=== PATIENT | female | born 1990 | race Caucasian/White ===

== ENCOUNTER → 2017-01-04 12:28 | Outpatient (CLI) | payer MEDICAID ==
[2015-07-01 12:50] VITALS: BMI 30.5
[~2017-01-04 12:28] MED LIST: CELEXA10 MG PO; DIABETA2.5 MG PO; HYDROCODONE-APA1 TAB PO; IBUPROFEN600 MG PO; PRENATAL COMPLE1 TAB PO
== END | disposition home or self-care (01) ==
LOC: D.US 12:28
DX: O44.20 Partial placenta previa NOS or without hemorrhage, unspecified trimester (principal)

== ENCOUNTER → 2017-02-22 15:35 | Outpatient (CLI) | payer MEDICAID ==
[2015-07-01 12:50] VITALS: BMI 30.5
== END | disposition home or self-care (01) ==
LOC: D.LDO 15:35
DX: Z34.90 Encounter for supervision of normal pregnancy, unspecified, unspecified trimester (principal)

== ENCOUNTER → 2017-03-16 11:36 | Outpatient (CLI) | payer MEDICAID ==
[2015-07-01 12:50] VITALS: BMI 30.5
== END | disposition home or self-care (01) ==
LOC: D.LDO 11:36
DX: O26.893 Other specified pregnancy related conditions, third trimester (principal); Z3A.33 33 weeks gestation of pregnancy

== ENCOUNTER → 2017-03-19 08:26 | Outpatient (CLI) | payer MEDICAID ==
[2015-07-01 12:50] VITALS: BMI 30.5
== END | disposition home or self-care (01) ==
LOC: D.LDO 08:26
DX: O24.419 Gestational diabetes mellitus in pregnancy, unspecified control (principal); Z3A.33 33 weeks gestation of pregnancy

== ENCOUNTER → 2017-03-23 11:30 | Outpatient (CLI) | payer MEDICAID ==
[2015-07-01 12:50] VITALS: BMI 30.5
== END | disposition home or self-care (01) ==
LOC: D.LDO 11:30
DX: O24.913 Unspecified diabetes mellitus in pregnancy, third trimester (principal); Z3A.34 34 weeks gestation of pregnancy

== ENCOUNTER → 2017-03-26 09:37 | Outpatient (CLI) | payer MEDICAID ==
[2015-07-01 12:50] VITALS: BMI 30.5
== END | disposition home or self-care (01) ==
LOC: D.LDO 09:37
DX: O24.913 Unspecified diabetes mellitus in pregnancy, third trimester (principal); Z3A.34 34 weeks gestation of pregnancy

== ENCOUNTER → 2017-03-31 08:49 | Outpatient (CLI) | payer MEDICAID ==
[2015-07-01 12:50] VITALS: BMI 30.5
== END | disposition home or self-care (01) ==
LOC: D.LDO 08:49
DX: O24.913 Unspecified diabetes mellitus in pregnancy, third trimester (principal); Z3A.35 35 weeks gestation of pregnancy

== ENCOUNTER → 2017-04-03 09:08 | Outpatient (CLI) | payer MEDICAID ==
[2015-07-01 12:50] VITALS: BMI 30.5
== END | disposition home or self-care (01) ==
LOC: D.LDO 09:08
DX: O24.419 Gestational diabetes mellitus in pregnancy, unspecified control (principal); Z3A.35 35 weeks gestation of pregnancy

== ENCOUNTER → 2017-04-06 13:20 | Outpatient (CLI) | payer MEDICAID ==
[2015-07-01 12:50] VITALS: BMI 30.5
== END | disposition home or self-care (01) ==
LOC: D.LDO 13:20
DX: O24.419 Gestational diabetes mellitus in pregnancy, unspecified control (principal); Z3A.36 36 weeks gestation of pregnancy

== ENCOUNTER → 2017-04-09 16:55 | Outpatient (CLI) | payer MEDICAID ==
[2015-07-01 12:50] VITALS: BMI 30.5
== END | disposition home or self-care (01) ==
LOC: D.LDO 16:55
DX: O24.419 Gestational diabetes mellitus in pregnancy, unspecified control (principal); Z3A.36 36 weeks gestation of pregnancy

== ENCOUNTER → 2017-04-13 10:00 | Outpatient (CLI) | payer MEDICAID ==
[~2017-04-13 10:00] MED LIST changes: +AMBIEN10 MG PO; +GLYBURIDE2.5 MG PO; +PROTONIX40 MG PO
== END | disposition home or self-care (01) ==
LOC: D.LDO 10:00
DX: O24.419 Gestational diabetes mellitus in pregnancy, unspecified control (principal); Z3A.00 Weeks of gestation of pregnancy not specified

== ENCOUNTER 2017-04-18 22:00 | Outpatient (CLI) | payer MEDICAID ==
[2015-07-01 12:50] VITALS: BMI 30.5
[~2017-04-18 22:00] MED LIST changes: -AMBIEN10 MG PO; -GLYBURIDE2.5 MG PO; -PROTONIX40 MG PO
== END 2017-04-18 23:07 ==
LOC: D.LDO 22:00
DX: O26.893 Other specified pregnancy related conditions, third trimester (principal); Z3A.37 37 weeks gestation of pregnancy

== ENCOUNTER → 2017-04-20 13:58 | Outpatient (CLI) | payer MEDICAID ==
[2015-07-01 12:50] VITALS: BMI 30.5
[~2017-04-20 13:58] MED LIST changes: +AMBIEN10 MG PO; +GLYBURIDE2.5 MG PO; +PROTONIX40 MG PO
== END | disposition home or self-care (01) ==
LOC: D.LDO 13:58
DX: O24.913 Unspecified diabetes mellitus in pregnancy, third trimester (principal); Z3A.38 38 weeks gestation of pregnancy

== ENCOUNTER → 2017-04-23 18:37 | Outpatient (CLI) | payer MEDICAID ==
[2015-07-01 12:50] VITALS: BMI 30.5
== END | disposition home or self-care (01) ==
LOC: D.LDO 18:37
DX: O24.419 Gestational diabetes mellitus in pregnancy, unspecified control (principal); Z3A.38 38 weeks gestation of pregnancy

== ENCOUNTER → 2017-04-27 14:38 | Outpatient (CLI) | payer MEDICAID ==
[2015-07-01 12:50] VITALS: BMI 30.5
== END | disposition home or self-care (01) ==
LOC: D.LDO 14:38
DX: O24.419 Gestational diabetes mellitus in pregnancy, unspecified control (principal); Z3A.39 39 weeks gestation of pregnancy

== ENCOUNTER 2017-04-29 05:01 | Inpatient (IN) | payer MEDICAID ==
[2017-04-29] VITALS (13 sets, daily range): BP systolic 97–127; BP diastolic 54–76; BMI 30.8
[~2017-04-29 05:01] MED LIST changes: -AMBIEN10 MG PO; -GLYBURIDE2.5 MG PO; -PROTONIX40 MG PO
[2017-04-29] MEDS ORDERED: AMBIEN10 MG PO (05:30)
[2017-04-29] MEDS ORDERED: PROTONIX40 MG PO (05:32)
[2017-04-29] MEDS ORDERED: GLYBURIDE2.5 MG PO (05:32)
[2017-04-29 05:33] LABS: HEMATOCRIT 35.6 % (36.0-48.0); HEMOGLOBIN 12.1 g/dL (12-16); MCH 31.8 pg (26.0-34.0); MCV 93.7 fL (80.0-100.0); MEAN PLATELET VOLUME 10.3 fL (7.4-10.4); RBC 3.8 10x6/uL (4.00-5.40); RDW 13.1 % (11.5-14.5); WBC 13.7 10x3/uL (4.8-10.8)
[2017-04-29 06:21] LABS: APPEARANCE CLEAR (CLEAR); BILIRUBIN NEGATIVE (NEGATIVE); COLOR YELLOW (YELLOW); GLUCOSE NEGATIVE (NEGATIVE); KETONE NEGATIVE (NEGATIVE); NITRITE NEGATIVE (NEGATIVE); PROTEIN NEGATIVE (NEGATIVE); SPECIFIC GRAVITY 1.015 (1.005-1.020); UROBILINOGEN NORMAL (NORMAL)
[2017-04-29 06:23] LABS: EPITHELIAL CELLS 0-5 /hpf (0-5); RED CELLS - URINE OCC /hpf (0-5); WHITE CELLS - URINE RARE /hpf (0-5)
[2017-04-29 06:24] LABS: BACTERIA NONE SEEN /hpf (NONE SEEN)
--- NOTE | 2017-04-29 08:56 | NUR ---
FUNDUS FIRM AT UMBILICUSL WITH MINIMAL LOCIA
--- NOTE | 2017-04-29 09:24 | NUR ---
PT WAS RECEIVED FROM RECOVERY POST C- SECTION. SHE IS AWAKE AND ALERT. LUNGS- CLEAR. HEART- RRR. ABD- SOFT WITH TENDERNESS, FUNDUS AT U2. SMALL LOCHIA RUBRA. LOW TRANSVERSE INCISION WITH PRIMAPORE DRESSING NOTED. DRESSING IS CLEAN , DRY AND INTACT.. EXT- WITH SCD'S. INITIATED SCD'S. IV NOTED R HAND PATENT. SANTIAGO PATENT WITH VIOLETA COLORED URINE. BED IS LOW, SIDE RAILS UP X 2 AND CALL LIGHT IN REACH.
--- NOTE | 2017-04-29 09:59 | NUR ---
DIETARY AIDE INITIATED AND PT INSTRUCTIONS GIVEN. FAMILY NOW AT BEDSIDE. ICE PACK PLACED OVER INCISION. PT TOLERATED CLEAR LIQUID DIET.
--- NOTE | 2017-04-29 10:40 | NUR ---
PT IS RESTING IN BED. PAIN IS UNDER CONTROL. FOB AT BEDSIDE. PAIN IS UNDER CONTROL WITH LANDSCAPE CREW MEMBER.
--- NOTE | 2017-04-29 11:30 | NUR ---
PT RECEIVED CLEAR LIQUID DIET AND SHE TOLERATED VERY WELL. SHE DRANK EVERYTHING OFF OF TRAY.
--- NOTE | 2017-04-29 13:59 | NUR ---
returned to bed after shower. states no problems. talked with pt. pt missing her children. showing their pictures to this nurse.
--- NOTE | 2017-04-29 14:30 | NUR ---
PT IS TRYING TO SLEEP. BED IS LOW, SIDE RAILS UP X 2 AND CALL LIGHT IN REACH.
[2017-04-29 15:47] LABS: BASOPHILS 0.1 % (0-2); EOSINOPHILS 0.5 % (0-7); HEMATOCRIT 30.7 % (36.0-48.0); HEMOGLOBIN 10.3 g/dL (12-16); IMMATURE GRANULOCYTES 0.4 % (0-5); LYMPHOCYTES 13.4 % (15-50); MCH 31.3 pg (26.0-34.0); MCHC 33.6 g/dL (31.0-37.0); MCV 93.3 fL (80.0-100.0); MEAN PLATELET VOLUME 10.9 fL (7.4-10.4); MONOCYTES 4.9 % (2-11); NEUTROPHILS 80.7 % (40-80); PLATELET COUNT 278 10x3/uL (130-400); RBC 3.29 10x6/uL (4.00-5.40); RDW 12.9 % (11.5-14.5)
[2017-04-29 15:52] LABS: WBC 17.7 10x3/uL (4.8-10.8)
--- NOTE | 2017-04-29 16:15 | NUR ---
WENT IN ROOM TO CHECK ON PT. SHE IS CRYING HARD. SHE STATES THAT SHE FEELS TRAPPED. SHE WANTS TO STAND UP. STATES THAT SHE CANT SLEEP. CALLED DR ARAUZ AND HE SAID THAT SHE COULD GET UP AND SIT UP IF SHE WANTS. PT GOT UP AND STOOD AT BEDSIDE, MODERATE LOCIA ON PADS. PADS CHANGED. PT BACK TO BED.
--- NOTE | 2017-04-29 19:30 | NUR ---
PM ROUNDS MADE, PT RESTING WITH EYES CLOSED, RESP QUIET, NO DISTRESS NOTED, LEFT UNDISTURBED AT THIS TIME
--- NOTE | 2017-04-29 20:00 | NUR ---
PT AWAKE, ASSESSMENT PER FLOW SHEET, VS OBTAINED, IV IN RIGHT HAND INTACT WITH NO REDNESS OR EDEMA INFUSING VIA PUMP NS WITH PITOCIN AT 125 ML/HR, DILAUDID FMD TEACHER TO DELIVER 0.2MG/10MINS PER PT'S DEMAND, PT RATES INC PAIN 08/28, PT DOES PUSH FMD TEACHER BUTTON AT THIS TIME, FF, ML, U/1, LITE BLEEDING NOTED WITH NO CLOTS, BIKINI INC WITH SMALL DRESSING CDI WITH NO DRAINAGE NOTED, REFUSES ICE PACK, PT REQUESTS TO STAND AT BEDSIDE FOR A FEW MINUTES, PT UP TO SIDE OF BED WITH ASSISTANCE, DENIES ANY DIZZYNESS, LIGHTHEADEDNESS AT THIS TIME, BLUE CHUX CHANGED, PT BACK TO BED, SANTIAGO CATH INTACT DRAINING DARK YELLOW URINE, PT DENIES FLATUS, SCD'S PLACED BACK ON AND WORKING PROPERLY, PT DENIES ANY NAUSEA OR VOMITING, STATES "I FEEL A LOT BETTER", REQUESTED AND SERVED COLA, PT REQUESTED TO ROOM, NSY NOTIFIED, DENIES FURTHER NEEDS, FOB AT BEDSIDE, TRASH REMOVED
--- NOTE | 2017-04-29 21:15 | NUR ---
PT RESTING, AROUSES TO OPENING OF DOOR, DENIES NEEDS AT THIS TIME, FOB AT BEDSIDE
--- NOTE | 2017-04-29 22:17 | NUR ---
PT RESTING WITH EYES CLOSED, RESP QUIET, NO DISTRESS NOTED, LEFT UNDISTURBED AT THIS TIME, FOB ASLEEP IN RECLINER
--- NOTE | 2017-04-29 23:00 | NUR ---
PT FISHER SEAL LIGHT, IV BEEPING, PT'S IV IS POSITIONAL, PT REPOSITONED HAND, VS OBTAINED, LITE BLEEDING NOTED, ROSALBA PAD CHANGED, EMPTIED SANTIAGO CATHETER, PT RATES INC PAIN 2/10, REQUESTED AND SERVED ICE CHIPS, ASSISTED FOB WITH CHAIR BED, PT DENIES FURTHER NEEDS
--- NOTE | 2017-04-30 00:11 | NUR ---
PT SHOT GRINDER OPERATOR LIGHT, IV BEEPING, NEW VIAL OF DILAUDID TO JOURNEYMAN PIPEFITTER MACHINE AND NEW BAG OF NS WITH PITOCIN HUNG, PER MD ORDERS, SEE EMAR, PT DENIES NEEDS AT THIS TIME, FOB AT BEDSIDE
--- NOTE | 2017-04-30 01:12 | NUR ---
PT RESTING WITH EYES CLOSED, RESP QUIET, NO DISTRESS NOTED, LEFT UNDISTURBED AT THIS TIME, FOB ASLEEP IN CHAIRBED
--- NOTE | 2017-04-30 01:44 | NUR ---
PT RAILROAD CAR CLEANER LIGHT, PT REQUESTING SOMETHING TO HELP HER SLEEP, EXPLAINED TO PT THAT WE DON'T ADM SLEEPING AIDS WHILE ON A DILAUDID WILDLIFE AND GAME PROTECTOR, PT VERBALIZES UNDERSTANDING, PT REQUESTED AND SERVED SNACK, DENIES FURTHER NEEDS, FOB ASLEEP IN RECLINER
--- NOTE | 2017-04-30 02:33 | NUR ---
PT HUNTER GUIDE LIGHT, PT REQUESTED AND SERVED A SNACK, DENIES FURTHER NEEDS
[2017-04-30 03:40] VITALS: BP 108/65
--- NOTE | 2017-04-30 03:40 | NUR ---
PT AWAKE, VS OBTAINED, I&O'S COLLECTED, LITE BLEEDING WITH NO CLOTS NOTED, ROSALBA PAD CHANGED, RATES INC PAIN 2/10, REQUESTED AND SERVED CUP OF ICE, DENIES FURTHER NEEDS, FOB AT BEDSIDE
--- NOTE | 2017-04-30 05:00 | NUR ---
PT INTERNAL SECURITY MANAGER LIGHT, PT REQUESTING ROSALBA PAD TO BE CHANGED, SCANT BLEEDING NOTED WITH NO CLOTS, PT REQUESTS BABY TO ROOM, BABY TO ROOM VIA OPEN CRIB CART PER THIS RN, BANDS CHECKED, PT DENIES FURTHER NEEDS, FOB ASLEEP IN CHAIRBED
--- NOTE | 2017-04-30 05:31 | NUR ---
PT PLATE FINISHER LIGHT, PT REPORTS GETTING SLEEPY, BABY TO NSY VIA OPEN CRIB CART PER THIS RN, PT DENIES FURTHER NEEDS
[2017-04-30 05:51] LABS: BASOPHILS 0.1 % (0-2); EOSINOPHILS 1.6 % (0-7); HEMATOCRIT 33.1 % (36.0-48.0); HEMOGLOBIN 11.2 g/dL (12-16); IMMATURE GRANULOCYTES 0.4 % (0-5); LYMPHOCYTES 21.5 % (15-50); MCHC 33.8 g/dL (31.0-37.0); MCV 94.6 fL (80.0-100.0); MEAN PLATELET VOLUME 10.2 fL (7.4-10.4); MONOCYTES 4.9 % (2-11); NEUTROPHILS 71.5 % (40-80); PLATELET COUNT 292 10x3/uL (130-400); WBC 14.6 10x3/uL (4.8-10.8)
--- NOTE | 2017-04-30 06:37 | NUR ---
SHIFT REPORT TO MARY SHEA RN
[2017-04-30 07:13] VITALS: BP 112/68
--- NOTE | 2017-04-30 07:13 | NUR ---
RCVD PT FROM Taryn GHOSH RN. PT SITTING UP IN BED WITH HOB 60 DEGREES. PT AAOX3. C/O PAIN IN ABD @ INCISION 12/26 WITH LITTLE RELIEF FROM FORESTRY AID TECHNICIAN. WILL PLAN TO GIVE TORADOL UPON RETURN. BREATH SOUNDS CLEAR & UNLABORED X2, BOWEL SOUNDS ACTIVE X4. LARGE DRESSING OVER BLI WITH SMALL SEROSANGUINOUS DRAINAGE NOTED, DRESSING IS DRY. FUNDUS FIRM, U/2. SMALL LOCHIA RUBRA NOTED TO PERIPAD WITH NO CLOTS NOTED. PAD CHANGED AT THIS TIME. SANTIAGO CATH DRAINING TO GRAVITY WITH 450ML OF CLEAR YELLOW URINE EMPTIED FROM UROMETER. PIV TO R HAND PATENT WITH NO SIGNS OF ERYTHEMA OR EDEMA NOTED. PT HAS REG. DIET ORDERED. SANDWICH TRAY AND COLA PROVIDED PER PT REQUEST. PT DENIES FURTHER NEEDS AT THIS TIME. WILL CONT TO MONITOR. BED LOW, WHEELS LOCKED, CL IN REACH, SIDE RAILS UP X2.
--- NOTE | 2017-04-30 07:17 | NUR ---
TORADOL GIVE PER ORDERS. SEE EMAR. PT DENIES FURTHER NEEDS AT THIS TIME.
--- NOTE | 2017-04-30 07:45 | NUR ---
PAIN REASSESSMENT COMPLETED AT THIS TIME. PT RATES PAIN 3/10 CURRENTLY AND TOLERABLE. PT SITTING UP IN BED WITH INFANT UP IN ARMS AND CONSUMED 100% OF MEAL TRAY. PT DENIES FURTHER NEEDS. WILL CONT TO MONITOR.
[2017-04-30 08:21] LABS: RAPID PLASMA REAGIN Non Reactive (Non Reactive)
--- NOTE | 2017-04-30 09:00 | NUR ---
SANTIAGO CATH D/C'D WITH CATH TIP INTACT, 175ML CLEAR YELLOW URINE NOTED IN UROMETER. PT TOLERATED WELL. HAUL DRIVER PUMP TURNED OFF AT THIS TIME. PIV SL. ADV PT TO CALL WHEN FEELS URGE TO VOID. PT VERBALIZED UNDERSTANDING AND DENIES FURTHER NEEDS.
--- NOTE | 2017-04-30 09:30 | NUR ---
PT RINGS CL. RN TO BEDSIDE. PT REPORTS URGE TO VOID. PT ASSISTED TO SITTING ON SIDE OF BED WITH NO C/O DIZZINESS OR LIGHTHEADEDNESS. PT ASSISTED TO STANDING AT BEDSIDE WITH NO C/O DIZZINESS. PT AMB PER SELF TO BATHROOM. VOIDS LARGE AMOUNT ON COMMODE. PANTIES AND PADS PROVIDED. PT AMB PER SELF BACK TO BED AND DENIES FURTHER NEEDS AT THIS TIME. WILL CONT TO MONITOR.
[2017-04-30 11:13] VITALS: BMI 30.8
[2017-04-30 11:35] VITALS: BP 111/70
--- NOTE | 2017-04-30 11:35 | NUR ---
VSS. PT SITTING UP IN BED WITH MEAL TRAY DELIVERED. PT RATES PAIN 5/10 AND REQUESTS MOTRIN AND NORCO. ADV WILL RETURN WITH SAME. PT DENIES FURTHER NEEDS.
--- NOTE | 2017-04-30 11:47 | NUR ---
NORCO 10/325 X1 TAB AND MOTRIN 600MG X1 TAB GIVEN FOR PAIN RATED 5/10 AND PER PT REQUEST AT THIS TIME. PT DENIES FURTHER NEEDS. FAMILY IN ROOM VISITING WITH SLEEPING IN OPEN CRIB AT BEDSIDE. PT REPORTS NEEDS TO VOID 1 MORE TIME BEFORE SHOWER. ADV PT TO CALL WHEN READY.
--- NOTE | 2017-04-30 12:35 | NUR ---
PAIN REASSESSMENT COMPLETE. PT RATES PAIN 3/10 AND TOLERABLE. PT DENIES FURTHER NEEDS. WILL CONT TO MONITOR.
--- NOTE | 2017-04-30 13:28 | NUR ---
ROUNDS MADE. PT VOIDS X3 AT THIS TIME AND REQUESTS TO SHOWER. LINENS AND TOWELS PROVIDED. PT DENIES FURTHER NEEDS.
--- NOTE | 2017-04-30 14:15 | NUR ---
ROUNDS MADE. PT OUT OF SHOWER. DENIES PAIN OR NEEDS AT THIS TIME. WILL CONT TO MONITOR.
--- NOTE | 2017-04-30 15:11 | NUR ---
ROUNDS MADE. PT AMB IN ROOM. PAIN 5/10, AND STATES IT'S TOLERABLE. PT DENIES FURTHER NEEDS AT THIS TIME.
--- NOTE | 2017-04-30 15:11 | NUR ---
ROUNDS MADE. PT DENIES PAIN AT THIS TIME OR NEEDS. PT CURRENTLY . WILL CONT TO MONITOR.
[2017-04-30 15:56] VITALS: BP 110/67
--- NOTE | 2017-04-30 15:56 | NUR ---
NORCO GIVEN PER ORDERS. SEE EMAR. PT RATES PAIN 5/10 CURRENTLY IN ABD. INFANT RESTING IN OPEN CRIB AT BEDSIDE. PT DENIES FURTHER NEEDS AT THIS TIME.
--- NOTE | 2017-04-30 17:06 | NUR ---
PAIN REASSESSMENT COMPLETE. PT RATES PAIN 3/10 AT THIS TIME AND DESCRIBES THIS TOLERABLE. PT WISHES TO CONSUME MEAL TRAY BEFORE TRANSFERRING TO NEW ROOM. PT DENIES FURTHER NEEDS. WILL CONT TO MONITOR.
--- NOTE | 2017-04-30 17:16 | NUR ---
PT AMB TO ROOM 1274 AT THIS TIME. STEADY GAIT NOTED. PT AND FOB ORIENTED TO ROOM. PT DENIES FURTHER NEEDS AT THIS TIME.
[2017-04-30 19:13] VITALS: BP 127/75
--- NOTE | 2017-04-30 19:13 | NUR ---
RN TO BEDSIDE. PT REC'D SITTING IN HIGH FOWLERS POSITION. INFANT IN OPEN CRIB AT BEDSIDE. PT EATING MEAL BROUGHT TO HER BY FAMILY. PAIN 8/10 AT THIS TIME, ABD CRAMPING WITH INCISIONAL BURNING AND STINGING. PT REQUEST PAIN MEDICATIONS, MOTRIN GIVEN PER REQUEST. INSTRUCTED ON NORCO TIMING AND FREQUENCY, VERBALIZED UNDERSTANDING. VSS. FUNDUS FIRM U2 WITH SMALL AMT RUBRA LOCHIA, NO CLOTS PRESENT. BOWEL SOUNDS PRESENT AND ACTIVE X4, PT STATES THAT SHE IS PASSING FLATUS AND VOIDING WITHOUT DIFFICULTY. INCISION, CLEAN AND DRY, WELL APPROXIMATED WITH MILA IN PLACE, NO S/S OF INFECTION NOTED. PT REPORTS THAT PERIPAD BETWEEN ABD FOLD AND INCISION CAUSED HER INCISION TO ITCH, PILLOWCASE PLACED INSTEAD, PT VERBALIZED RELIEF. INSTRUCTED PT AND S/O ON S/S OF INFECTION AND POSSIBLE COMPLICATIONS. PT ALSO INSTRUCTED ON PAIN MGMT AND LOCHIA AMT/DURATION/APPEARANCE FOR PP PERIOD WITH UNDERSTANDING VERBALIZED. S/O AT BEDSIDE, SUPPORTIVE AND ATTENTIVE TO PT AND INFANT. BED IN LOW POSITION WITH UPPER SIDE RAILS RAISED X2. CL AND PHONE WITHIN REACH. WILL CONT TO MONITOR AND ASSIST PRN.
--- NOTE | 2017-04-30 20:06 | NUR ---
PAIN REASSESSMENT COMPLETED. PAIN REMAINS 12/26, PT REQUESTS NORCO AT THIS TIME. STATES THAT MOTRIN HELPED CRAMPING BUT SHE IS STILL HAVING INCISIONAL BURNING AND STINGING. GIVEN PER REQUEST. INSTRUCTED PT ON SIDE EFFECTS AND FREQUENCY OF NORCO, VERBALIZED UNDERSTANDING. VISITORS AT BEDSIDE. PT CONVERSING WITH VISITORS ALSO. BED IN LOW POSITION WITH UPPER SIDE RAILS RAISED X2. CL AND PHONE WITHIN REACH. WILL CONT TO MONITOR AND ASSIST PRN.
--- NOTE | 2017-04-30 20:55 | NUR ---
PAIN REASSESSMENT COMPLETED. 10/26. ICE PROVIDED. DENIES ADDITIONAL NEEDS AT THIS TIME. BED IN LOW POSITION. LINENS PROVIDED TO S/O. BED IN LOW POSITION WITH UPPER SIDE RAILS RAISED X2. CL AND PHONE WITHIN REACH. XU CORONEL RN TO BEDSIDE WITH INFANT. WILL CONT TO MONITOR AND ASSIST PRN.
--- NOTE | 2017-04-30 22:12 | NUR ---
RN TO BEDSIDE FOR ROUNDS. PT IN SEMIFOWLERS POSITION BONDING WITH INFANT. PAIN 2/10, DENIES NEEDS AT THIS TIME. S/O RESTING ON COUCH AT BEDSIDE. BED IN LOW POSITION WITH UPPER SIDE RAILS RAISED X2. CL AND PHONE WITHIN REACH. WILL CONT TO MONITOR AND ASSIST PRN.
--- NOTE | 2017-04-30 23:29 | NUR ---
RN TO BEDSIDE FOR ROUNDS. PT RESTING QUIETLY WITH EYES CLOSED IN SEMIFOWLERS POSITION. RESPIRATIONS REGULAR AND UNLABORED, NO S/S OF DISTRESS NOTED. IN OPEN CRIB AT BEDSIDE. S/O RESTING ON COUCH AT BEDSIDE. BED IN LOW POSITION WITH UPPER SIDE RAILS RAISED X2. CL AND PHONE WITHIN REACH. WILL CONT TO MONITOR AND ASSIST PRN.
[2017-05-01 00:29] VITALS: BP 110/70
--- NOTE | 2017-05-01 00:29 | NUR ---
RN TO BEDSIDE FOR ROUNDS. ICE PROVIDED PER REQUEST. VSS. FUNDUS FIRM U2 WITH SMALL AMT RUBRA LOCHIA, NO CLOTS PRESENT. PAIN 6/10 ABD CRAMPING, INCISIONAL BURNING/STINGING. NORCO GIVEN PER REQUEST AND ORDER. S/O REMAINS AT BEDSIDE RESTING ON COUCH. PT DENIES ADDITIONAL NEEDS AT THIS TIME. BED IN LOW POSITION WITH UPPER SIDE RAILS RAISED X2. CL AND PHONE WITHIN REACH. WILL CONT TO MONITOR AND ASSIST PRN.
--- NOTE | 2017-05-01 01:23 | NUR ---
PAIN REASSESSMENT COMPLETED. PT RESTING WITH EYES CLOSED IN SEMI FOWLERS POSITION ON RIGHT SIDE, DOESN'T OPEN EYES WHEN DOOR OPENS. RESPIRATIONS REGULAR AND UNLABORED, NO S/S OF DISTRESS NOTED. S/O REMAINS AT BEDSIDE RESTING ON COUCH. BED IN LOW POSITION WITH UPPER SIDE RAILS RAISED X2. CL AND PHONE WITHIN REACH. WILL CONT TO MONITOR AND ASSIST PRN.
--- NOTE | 2017-05-01 04:04 | NUR ---
RN TO BEDSIDE FOR ROUNDS. PT ATTEMPTING TO BREAST FEED AT THIS TIME. INSTRUCTED TO CALL RN TO BEDSIDE WITH CL WHEN SHE FINISHES BREAST FEEDING, VERBALIZES UNDERSTANDING. DENIES NEED FOR ASSISTANCE WITH BREAST FEEDING. NBN NOTIFIED THAT PT WAS AT THIS TIME. WILL CONT TO MONITOR AND ASSIST PRN.
--- NOTE | 2017-05-01 04:25 | NUR ---
PT CALLS VIA CL. RN TO BEDSIDE. VSS. FUNDUS FIRM U2 WITH SMALL AMT RUBRA LOCHIA, NO CLOTS. PAIN 7/10, ABD CRAMPING AND INCISIONAL BURNING AND STINGING. NORCO AND MOTRIN GIVEN. INFANT NOTED TO BE ROOTING. PT ASKS ABOUT . INSTRUCTED ON BOTTLE FEEDING AND BREAST FEEDING. PT STATES THAT SHE IS GOING TO ATTEMPT TO BREAST FEED AGAIN AT THIS TIME. REQUESTS ASSISTANCE, Opal HILARIO RN NOTIFIED AND WILL COME TO BEDSIDE TO ASSIST WITH FEEDING. BED IN LOW POSITION WITH UPPER SIDE RAILS RAISED X2. CL AND PHONE WITHIN REACH. WILL CONT TO MONITOR.
[2017-05-01 04:27] VITALS: BP 117/72
--- NOTE | 2017-05-01 05:10 | NUR ---
PAIN REASSESSMENT COMPLETED. PT RESTING WITH EYES CLOSED IN SEMI FOWLERS POSITION ON BACK. RESPIRATIONS REGULAR AND UNLABORED. NO S/S OF DISTRESS NOTED. S/O REMAINS AT BEDSIDE RESTING ON COUCH. BED IN LOW POSITION WITH UPPER SIDE RAILS RAISED X2. CL AND PHONE WITHIN REACH. WILL CONT TO MONITOR AND ASSIST PRN.
--- NOTE | 2017-05-01 06:39 | NUR ---
RN TO BEDSIDE FOR ROUNDS. PT LAYING ON RIGHT SIDE, IN SEMI FOWLERS POSITION RESTING WITH EYES CLOSED. RESPIRATIONS REGULAR AND UNLABORED. NO S/S OF DISTRESS NOTED. BED IN LOW POSITION WITH UPPER SIDE RAILS RAISED X2. CL AND PHONE WITHIN REACH. S/O REMAINS AT BEDSIDE RESTING ON COUCH WITH EYES CLOSED. WILL CONT TO MONITOR AND ASSIST PRN.
--- NOTE | 2017-05-01 07:27 | NUR ---
THIS RN TO ROOM FOR SHIFT ASSESSMENT. PT , DENIES ANY NEEDS AT THIS TIME. PT INSTRUCTED TO CALL OUT SUPERVISOR FIBER LOCKING LIGHT WHEN FINISHED FEEDING SO SHIFT ASSESSMENT CAN BE COMPLETED. UNDERSTANDING VERBALIZED. SRUx2, CL IN REACH. FOB IN ROOM.
[2017-05-01 07:47] VITALS: BP 123/76
--- NOTE | 2017-05-01 07:47 | NUR ---
PT CALLS OUT REAL ESTATE ACQUISITION ANALYST LIGHT STATING SHE HAS FINISHED FEEDING . THIS RN TO ROOM FOR ASSESSMENT. SHIFT ASSESSMENT COMPLETED, VSS, SEE FLOWSHEET FOR DOC. PT RATES PAIN 4/10 AT INCISION AND ABD CRAMPING FOLLOWING . PT ASKS WHEN PAIN MED IS AVAILABLE AGAIN, PT INFORMED, UNDERSTANDING VERBALIZED. PT DENIES HEAVY LOCHIA DEFINED SATURATING ROSALBA PAD EVERY HOUR, ALSO DENIES PASSING LARGE CLOTS. PT STATES HER BLEEDING "ISN'T REALLY THAT BAD." LT ABD INCISION C/D WITH MILA INTACT, NO REDNESS, EDEMA, OR DRAINAGE. ANTICIPATED DISCHARGE DISCUSSED WITH PT, STATES SHE IS "REALLY READY TO GO HOME THIS MORNING." POC DISCUSSED. PT DENIES FURTHER NEEDS. SRUx2, CL IN REACH. WILL CONT TO MONITOR.
--- NOTE | 2017-05-01 08:41 | NUR ---
PT CALLS OUT NETWORK OPERATIONS TECHNICIAN LIGHT REQUESTING PAIN MEDICATION. PT RATING PAIN 5/10 AT INCISION, AND ABD CRAMPING. PT ADMIN PRN PAIN MED ORDERED, SEE EMAR FOR DOC. PT REQUESTING INFANT TO ROOM. NSY NOTIFIED PT IS READY FOR . PT DENIES FURTHER NEEDS. SRUx2, CL IN REACH. FOB IN ROOM.
--- NOTE | 2017-05-01 09:37 | NUR ---
PT AMBULATING IN HALLS, STATES "I JUST NEEDED TO GET OUT OF MY ROOM FOR A MINUTE." PT STATES PAIN IS MUCH BETTER, RATES 2/10. PT STATES SHE HAS BEEN COUGHING AND DEEP BREATHING MORE AND FEELS BETTER. PT ENCOURAGED ON AMBULATING AND COUGHING. PT DENIES NEEDS, AMBULATES BACK TO ROOM.
--- NOTE | 2017-05-01 11:00 | NUR ---
DR MALDONADO TO PT ROOM ROUNDING.
--- NOTE | 2017-05-01 11:21 | NUR ---
PT AMBULATES TO DESK AND ASKS IF IT IS TIME FOR AN IBUPROFEN FOR PAIN, RATES IT /10. THIS RN TO ROOM WITH IBUPROFEN, ADMIN ORDERED, SEE EMAR FOR DOC.
--- NOTE | 2017-05-01 11:30 | NUR ---
PT GIVEN DISCHARGE INSTRUCTIONS, WELL PRESCRIPTIONS FOR PAIN CONTROL POST D/C TO HOME. QUESTIONS ANSWERED, PT VERBALIZES UNDERSTANDING. PT SIGNS CHART COPIES. NSY STAFF TO ROOM TO DISCHARGE INFANT, PT INSTRUCTED TO CALL WHEN READY FOR W/C OUT TO PRIVATE VEHICLE. UNDERSTANDING VERBALIZED.
--- NOTE | 2017-05-01 11:56 | NUR ---
PT PRESSES CALL LIGHT FOR W/C OUT. PT TAKEN OUT VIA W/C TO PRIVATE VEHICLE, FOB TO DRIVE HOME. INSTRUCTIONS AND PRESCRIPTIONS IN HAND.
--- NOTE | 2017-06-17 16:41 | OP ---
PATIENT NAME: MATT LOPEZ MEDICAL RECORD: [id number] :90 LOCATION:[id number] ADMISSION DATE:04/29/17 SURGEON: AJITH SANTANA MD DATE OF OPERATION: 04/29/2017 PREOPERATIVE DIAGNOSES: 1. Term intrauterine at 39 weeks. 2. History of previous section. PROCEDURE: Repeat low transverse section. SURGEON: Ajith Santana MD ANESTHESIA: Via spinal. FINDINGS: 1. Viable , Apgars 9 and 9. 2. Placenta delivered manually intact, 3-vessel cord noted. 3. Grossly normal adnexa bilaterally. SPECIMENS: Placenta and cord for gases. INTRAVENOUS FLUIDS: Per anesthesia records. ESTIMATED BLOOD LOSS: 1000 cc. COMPLICATIONS: None apparent. PROCEDURE: The patient was taken to the operating room where spinal anesthesia was achieved without difficulty. The patient was then prepped and draped in normal sterile fashion in the dorsal supine position. A Salazar catheter was in place and was draining freely and the SCDs were on the lower extremities and functioning normally. Following prepping and draping, a repeat Pfannenstiel skin incision was made, extended downward to the underlying subcutaneous fat to level of the fascia, which was then carefully excised in the midline and extended bilaterally using the Rao scissors. The superior and inferior aspect of the fascial incision were then grasped with Po clamps times 2, tented upward, and sharply dissected from the underlying rectus muscle using the Rao scissors and the Bovie cautery. The rectus muscles were then bluntly in the midline and the peritoneum entered sharply at the superior aspect of the incision using the Metzenbaum scissors. Peritoneal incision was then extended using the Metzenbaum scissors. A bladder flap was created by excising the anterior leaf of the broad ligament from the lower uterine segment using the Metzenbaum scissors. A bladder blade was placed into the pelvis. A low transverse incision was made using the scalpel and extended superiorly and inferiorly using the Pelosi method. At this point, the vertex was delivered atraumatically followed by the body. was bulb suctioned upon delivery. The cord was clamped times 2, cut, and the was handed to the awaiting nursery team. Cord was then obtained for blood gases and the placenta was manually removed from the uterus. Uterus was then exteriorized, cleared of all clots and debris and vigorously massaged until a good uterine tone was noted. Uterine incision was repaired with 0 Vicryl in a running locked fashion times 2 with good hemostasis noted. Posterior cul-de-sac was then thoroughly irrigated and the uterus was replaced into the pelvis. The anterior cul-de-sac was irrigated and again good hemostasis was noted from the low transverse OPERATIVE REPORT [id number] MATT LOPEZ incision. Counts were correct times 2 for needles, sponges and instruments. The fascia was repaired with 0 loop PDS times 1 and the skin repaired with kaesy. The patient tolerated the procedure well, transferred to postanesthesia recovery stable without incident. TRANSINT:[id number] Voice Confirmation ID: [id number] DOCUMENT ID: [id number] 05/25/2017 Edited to correct date of service, dmpatricio. AJITH SANTANA MD at 1641 CC: [id number] DICTATION DATE: 05/09/17713 ACCOUNTING REPRESENTATIVE: 05/09/17 1031 DIS IN 05/01/17 [facility] [address] [place] [address]
== END 2017-05-01 11:57 | disposition home or self-care (01) | DRG 766 ==
LOC: D.LD 05:01 → D.WS 05:01 → D.SDCHOLD 07:30 → D.WS 09:30 → D.LD 04-30 17:16
PROVIDERS: ADMIT Obstetrics & Gynecology
PROC: 10D00Z1 Extraction of Products of Conception, Low, Open Approach (ICD-10-PCS; principal; 2017-04-29 07:30)
DX: O99.824 Streptococcus B carrier state complicating childbirth (principal); Z3A.39 39 weeks gestation of pregnancy; Z37.0 Single live birth; O24.429 Gestational diabetes mellitus in childbirth, unspecified control; O99.344 Other mental disorders complicating childbirth; O34.219 Maternal care for unspecified type scar from previous cesarean delivery; Z87.891 Personal history of nicotine dependence